=== PATIENT | female | born 1970 | race Caucasian/White ===

== ENCOUNTER 2017-03-19 22:24 | Emergency (ER) | payer OTHER ==
[2017-03-19] MEDS ORDERED: IPRATROPIUM/ALBUTEROL SULFATE 3 ML AMPUL.NEB NEB ONE (22:40)
[2017-03-19] MEDS: IPRATROPIUM/ALBUTEROL SULFATE 3 ML AMPUL.NEB NEB ONE ×2 (22:54→23:30)
--- NOTE | 2017-03-19 23:15 | Diagnostic Imaging Report ---
МАРИЯ LOPEZ [facility] [address] [facility] [address] [place], [place]. [address] Report Submission Date: Mar 19, 2017 11:12:16 PM CDT Patient Study Name: VALENTINE IVERSON Date: Mar 19, 2017 10:53:25 PM CDT Modality Type: CR Gender: F Description: CHEST : 74 Institution: [facility] Physician: МАРИЯ LOPEZ Chest 2 views Date of Exam: March 19, 2017. History: SOB X 7 DAYS (Hx) / SOB (DICOM Hx) / SOB (Pt comments) Findings: No comparison studies are available. The cardiac and mediastinal silhouettes are normal. The lungs are clear. There is no evidence of pulmonary infiltrate or pleural effusion. The trachea is midline and the aortic arch contour is normal. The pulmonary vascularity is within normal limits. Impression: No acute cardiopulmonary abnormality. Electronically signed on Mar 19, 2017 11:12:16 PM CDT by: Aileen SETVENS
--- NOTE | 2017-03-19 23:28 | ED Physician Documentation ---
Dyspnea - HISTORIAN Historian: patient - HPI Stated Complaint: cough, soa Chief Complaint: Asthma Additional Information: onset few days ago inc asthma cough wheezing-etiol uncertain Duration: continues in ED Initiating Event: upper respiratory illness. denies: out of meds Severity: moderate Exacerbated By: change in position, exertion, coughing Associated Symptoms: denies: chills, fever, sweating, chest pain, productive cough - ROS CONST: no problems GI/: none NEURO/PSYCH: denies: headache MS/SKIN/LYMPH: none. denies: rash, swollen glands - PAST HX Lung Disease: asthma, other (seizure lo thryoid) Cardiac Disease: none PE Risk Factors: none Surgeries/Procedures: other (BTL) Allergies/Adverse Reactions: Allergies Allergy/AdvReac Type Severity Reaction Status Date / Time naproxen sodium [From Aleve] Allergy Unknown Verified 03/19/17 22:50 aspirin Allergy Verified 03/19/17 22:50 Sulfa (Sulfonamide Allergy Verified 03/19/17 22:50 Antibiotics) Home Medications: Ambulatory Orders Medication Instructions Recorded Fluticasone Propionate [Flovent 1 puff INH DAILY 03/19/17 Hfa] Prednisone 10 mg PO TID #21 tablet 03/19/17 - SOCIAL HX Smoking History: non-smoker Alcohol Use: none Drug Use: none - FAMILY HX Family History: no significant history - VITAL SIGNS Vital Signs: Vital Signs Temp Pulse Resp BP Pulse Ox 98.9 F 91 H 19 123/83 97 03/19/17 22:50 03/19/17 22:50 03/19/17 22:50 03/19/17 22:50 03/19/17 22:50 - REVIEWED ASSESSMENTS Nursing Assessment Reviewed: Yes Vitals Reviewed: Yes ED Results Lab/Radiology - Radiology Radiology Impressions: cxr=wnl - Orders Orders: ED Orders Category Date Time Status CHEST P.A.&LAT 2 VIEWS [RAD] Stat Exams 03/19/17 Completed Ipratropium/Albuterol Sulfate [Duoneb] Med 03/19/17 22:40 Discontinued 3 ml NEB .STK-MED ONE Ipratropium/Albuterol Sulfate [Duoneb] Med 03/19/17 22:40 Discontinued 3 ml NEB NOW ONE Ipratropium/Albuterol Sulfate [Duoneb] Med 03/19/17 23:25 Once 3 ml NEB NOW ONE methylPREDNISolone ACETATE [Depo-Medrol] Med 03/19/17 23:25 Ordered 80 mg IM NOW PRN Dyspnea Physical Exam - EXAM General Appearance: mild distress, moderate distress EENT: eye inspection normal Neck: nml inspection. No: lymphadenopathy Respiratory: prolonged expirations, wheezes. No: stridor CVS: reg. rate & rhythm, no murmur Abdomen: non-tender Skin: color nml, no rash. No: cyanosis, diaphoresis, pallor, ecchymosis Extremities: non-tender, normal range of motion Neuro/Psych: oriented x3, motor nml, sensation nml, mood/affect nml Discharge Clincal Impression: acute exaberation asthma Prescriptions: Prednisone 10 mg PO TID #21 tablet Referrals: Georgette De La Cruz MD [Primary Care Provider] - 2 Days Home Medications: Ambulatory Orders Fluticasone Propionate [Flovent Hfa] 1 puff INH DAILY 03/19/17 Prednisone 10 mg PO TID #21 tablet 03/19/17 Comments: home meds f/u w/pcp prn Decision to Admit: NO Decision Time: 23:34
[2017-03-19] MEDS ORDERED: methylPREDNISolone ACETATE 80 MG/ML VIAL IM ONE (23:30)
[2017-03-19] MEDS: methylPREDNISolone ACETATE 80 MG/ML VIAL IM PRN (23:30)
[2017-03-19 23:56] VITALS: BP 109/78
== END 2017-03-19 23:50 | disposition home or self-care (01) ==
LOC: ED 22:24
DX: J45.901 Unspecified asthma with (acute) exacerbation (principal)
CPT/HCPCS: 71020; J1040; 96372; 99283

== ENCOUNTER 2017-05-10 13:27 | Emergency (ER) | payer OTHER ==
[2017-05-10 13:40] VITALS: BP 123/79
--- NOTE | 2017-05-10 14:41 | ED Physician Documentation ---
Ear Complaints - HISTORIAN Historian: patient - HPI Stated Complaint: left ear pain Chief Complaint: Ear Complaints Additional Information: xs wax lt ear canal Location of Pain: L ear Severity: moderate Associated Symptoms: dull pain, aching. denies: fever, chills, sharp pain - ROS CONST: no problems CVS/RESP: none GI/: denies: nausea, vomiting MS/SKIN/LYMPH: none All Systems -: Yes - PAST HX Past History: none Allergies/Adverse Reactions: Allergies Allergy/AdvReac Type Severity Reaction Status Date / Time naproxen sodium [From Aleve] Allergy Unknown Verified 05/10/17 13:40 aspirin Allergy Verified 05/10/17 13:40 Sulfa (Sulfonamide Allergy Verified 05/10/17 13:40 Antibiotics) - SOCIAL HX Smoking History: greater than 1 pack/day Alcohol Use: none Drug Use: none - FAMILY HX Family History: No - VITAL SIGNS Vital Signs: Vital Signs Temp Pulse Resp BP Pulse Ox 98.0 F 84 16 123/79 97 05/10/17 13:37 05/10/17 13:37 05/10/17 13:37 05/10/17 13:37 05/10/17 13:37 - REVIEWED ASSESSMENTS Nursing Assessment Reviewed: Yes Vitals Reviewed: Yes Procedures Additional Procedures: lavage - initial Progress: cerumen removal lt ear - used peroxide followed by warm water irrigation followed by betadine-cotton removed tomorrow Ear Complaint Physical Exam - EXAM General Appearance: mild distress Ear: auricle nml, childhood development teacher.canal nml, material in canal, cerumen Head/Neck: atraumatic Eye: eyes nml inspection Resp/CVS: chest non-tender, lungs clear, reg. rate & rhythm Skin: nml color Neuro/Psych: oriented x3 Discharge Clincal Impression: cerumen limpaction lt ear canal Referrals: Georgette De La Cruz MD [Primary Care Provider] - 2 Days Condition: Good Disposition: 01 HOME, SELF-CARE Decision to Admit: NO Decision Time: 14:45
== END 2017-05-10 14:42 | disposition home or self-care (01) ==
LOC: ED 13:27
DX: H61.22 Impacted cerumen, left ear (principal)
CPT/HCPCS: 69210; 99283; S1016

== ENCOUNTER 2017-08-18 18:22 | Emergency (ER) | payer OTHER ==
--- NOTE | 2017-08-18 18:42 | ED Physician Documentation ---
Upper Respiratory Symptoms - HISTORIAN Historian: patient - HPI Stated Complaint: Cough Chief Complaint: Cough/ Upper Respiratory Onset: days ago (4) Duration: constant Context: denies: recent foreign travel Severity: mild Associated Symptoms: fever (in first two days of illness ), chills Worsened by Deep Breath: No Further Comments: yes (cough (she has a history of asthma) fever (first two days of illness) cough that is productive fatigue and sinus pain and pressure.) - ROS CONST/EYES: weakness CVS/RESP: shortness of breath. denies: chest pain LYMPH: denies: rash GI/: denies: vomiting, nausea, diarrhea MS/SKIN: joint pain - PAST HX Lung Disease: asthma PE Risk Factors: other Surgeries/Procedures: none Immunizations: referred to PCP Allergies/Adverse Reactions: Allergies Allergy/AdvReac Type Severity Reaction Status Date / Time naproxen sodium [From Aleve] Allergy Unknown Verified 05/10/17 13:40 aspirin Allergy Verified 05/10/17 13:40 Sulfa (Sulfonamide Allergy Verified 05/10/17 13:40 Antibiotics) - SOCIAL HX Smoking History: non-smoker Alcohol Use: none Drug Use: none - FAMILY HX Family History: none - VITAL SIGNS Vital Signs: Vital Signs Temp Pulse Resp BP Pulse Ox 98.3 F 81 17 118/61 97 08/18/17 18:25 08/18/17 18:25 08/18/17 18:25 08/18/17 18:25 08/18/17 18:25 - REVIEWED ASSESSMENTS Nursing Assessment Reviewed: Yes Vitals Reviewed: Yes ED Results Lab/Radiology - Lab Results Lab Results: Lab Results 08/18/17 08/18/17 19:23 19:23 WBC 3.00 K/ul L K/ul (4.00-12.00) RBC 4.14 M/ul M/ul (3.90-5.20) Hgb 12.9 g/dL g/dL (12.0-16.0) Hct 38.3 % % (34.5-46.5) MCV 92.6 fl fl (80.0-100.0) MCH 31.1 pg pg (28.0-34.0) MCHC 33.6 g/dL g/dL (30.0-36.0) RDW 12.6 % % (11.3-14.3) Plt Count 245 K/mm3 K/mm3 (130-400) Neut % (Auto) 50.0 % % (39.0-79.0) Lymph % (Auto) 42.2 % % (16.0-50.0) [place] % (Auto) 3.3 % % (0.0-11.0) Eos % (Auto) 0.8 % % (0.0-6.8) Baso % (Auto) 0.4 (0.0-1.5) Neut # (Auto) 1.5 # k/uL # k/uL (1.4-7.7) Lymph # (Auto) 1.2 # k/uL # k/uL (0.6-4.0) [place] # (Auto) 0.1 # k/uL # k/uL (0.0-0.9) Eos # (Auto) 0.0 # k/uL # k/uL (0.0-0.6) Baso # (Auto) 0.0 # k/uL # k/uL (0.0-0.5) Reactive Lymphs % 3.3 % % (0.0-5.0) Reactive Lymphs # 0.1 # k/uL # k/uL (0.0-0.8) Sodium 140 mmol/L mmol/L (136-145) Potassium 3.6 mmol/L mmol/L (3.5-5.1) Chloride 104 mmol/L mmol/L (98-107) Carbon Dioxide 24 mmol/L mmol/L (22-30) BUN 4 mg/dL L mg/dL (7-17) Creatinine 0.50 mg/dL L mg/dL (0.52-1.04) Estimated Creat Clear 191 Est GFR ( Amer) > 60 (60 - ) Est GFR (Non-Af Amer) > 60 (60 - ) Glucose 101 mg/dL mg/dL (74-106) Calcium 8.4 mg/dL mg/dL (8.4-10.2) Total Bilirubin 0.6 mg/dL mg/dL (0.2-1.3) AST 64 U/L H U/L (15-46) ALT 45 U/L U/L (13-69) Alkaline Phosphatase 91 U/L U/L (38-126) Total Protein 7.7 g/dL g/dL (6.3-8.2) Albumin 4.2 g/dL g/dL (3.5-5.0) - Orders Orders: ED Orders Category Date Time Status IV Started NOW Care 08/18/17 18:48 Active CHEST 2 VIEW [CHEST P.A.&LAT 2 VIEWS] [RAD] Stat Exams 08/18/17 18:47 Taken CBC/PLATELET/DIFF Stat Lab 08/18/17 19:23 Completed CMP Stat Lab 08/18/17 19:23 Completed Ipratropium/Albuterol Sulfate [Duoneb] Med 08/18/17 18:48 Discontinued 3 ml NEB NOW ONE Upper Respiratory Symptoms - EXAM General Appearance: no acute distress EENT: eyes nml inspection, pharynx nml Neck: normal inspection Respiratory: no resp. distress, wheezes Abdomen: non-tender Skin: color nml, no rash, warm,dry Extremities: non-tender, normal range of motion, no edema Neuro/Psych: oriented x3, neuro intact, mood/affect nml Discharge Clincal Impression: Bronchitis Referrals: Georgette De La Cruz MD [Primary Care Provider] - 2 Days Comments: 1. zpack - take as directed 2. medrol dose pack take as directed 3. Continue proair for rescue 4. increase fluids 5. OTC meds for fever or headache 6. PCP in 2-4 days 7. Return to ER for fever, shortness of breath or any other concerns,. Condition: Stable Disposition: 01 HOME, SELF-CARE Decision to Admit: NO Date of Decison to Admit: 08/18/17 Decision Time: 19:57
[2017-08-18] MEDS: IPRATROPIUM/ALBUTEROL SULFATE 3 ML AMPUL.NEB NEB ONE (19:10)
[2017-08-18 19:26] LABS: BASOPHILS % 0.4 (0.0-1.5); EOSINOPHILS % 0.8 % (0.0-6.8); MEAN CORPUSCULAR HEMOGLOBIN 31.1 pg (28.0-34.0); MEAN CORPUSCULAR VOLUME 92.6 fl (80.0-100.0); MONOCYTES % 3.3 % (0.0-11.0); NEUTROPHILS # 1.5 # k/uL (1.4-7.7)
[2017-08-18 19:41] LABS: eGFR (African) > 60; eGFR (Non-African) > 60
[2017-08-18] MEDS: methylPREDNISolone ACETATE 40 MG/ML VIAL IM ONE (20:05)
[2017-08-18] MEDS: AZITHROMYCIN 250 MG TABLET PO ONE (20:10)
[2017-08-18 20:20] VITALS: BP 124/80
--- NOTE | 2017-08-18 22:39 | Diagnostic Imaging Report ---
KASSANDRA RICHARDSON [facility] [address] [facility] [address] [place], [place]. [address] Report Submission Date: Aug 18, 2017 7:13:17 PM COUNTER FORMER Patient Study Name: VALENTINE IVERSON Date: Aug 18, 2017 6:56:28 PM COUNTER FORMER Modality Type: CR Gender: F Description: CHEST : 74 Institution: [facility] Physician: KASSANDRA RICHARDSON PA and lateral chest CLINICAL HISTORY: Cough for 7 days. Fever and headache. FINDINGS: Examination of the chest in PA and lateral views with comparison to examination of 03/19/2017 demonstrates right lower lobe infiltrate medially. The left lung is clear. Cardiovascular and mediastinal silhouettes are within normal limits. IMPRESSION: Right lower lobe pneumonia. Electronically signed on Aug 18, 2017 7:13:17 PM COUNTER FORMER by: Willie STEVENS
== END 2017-08-18 20:13 | disposition home or self-care (01) ==
LOC: ED 18:22
DX: J40 Bronchitis, not specified as acute or chronic (principal); F17.210 Nicotine dependence, cigarettes, uncomplicated
CPT/HCPCS: 71020; 80053; 85025; J1030; 71046; 94640; 96372; 99283; S1016

== ENCOUNTER 2018-05-18 09:20 | Outpatient (CLI) | payer OTHER ==
[2018-05-18 09:38] LABS: BASOPHILS % 0.4 (0.0-1.5); EOSINOPHILS % 3.4 % (0.0-6.8); MEAN CORPUSCULAR HEMOGLOBIN 30.3 pg (28.0-34.0); MONOCYTES % 4.5 % (0.0-11.0); NEUTROPHILS # 3.5 # k/uL (1.4-7.7)
[2018-05-18 10:02] LABS: eGFR (Non-African) > 60
== END 2018-05-18 09:22 ==
LOC: LAB 09:20
PROVIDERS: ATTEND Family Medicine
DX: E03.9 Hypothyroidism, unspecified (principal)
CPT/HCPCS: 36415; 80053; 80156; 84443; 85025

== ENCOUNTER 2018-05-18 16:25 | Outpatient (CLI) | payer OTHER | END 2018-05-18 16:26 | LOC: LABRHC 16:25 | PROVIDERS: ATTEND Family Medicine | DX: Z12.4 Encounter for screening for malignant neoplasm of cervix (principal) | CPT/HCPCS: 88148; G0143 ==

== ENCOUNTER 2018-06-22 21:03 | Emergency (ER) | payer OTHER ==
[2018-06-22 21:21] VITALS: BP 138/93
--- NOTE | 2018-06-22 21:22 | ED Physician Documentation ---
General Adult - HISTORIAN Historian: patient - HPI Stated Complaint: cat scratch Chief Complaint: General Adult Additional Information: Patient presents to ED after being scratched on the nose by her cat. She states she can't stop the bleeding. She is unsure of her last tetanus. Onset: hours (2) Timing: still present Further Comments: no - ROS CONST: no problems EYES/ENT: none CVS/RESP: none GI/: none MS/SKIN/LYMPH: none - PAST HX Past History: none Other History: none Surgeries/Procedures: none Allergies/Adverse Reactions: Allergies Allergy/AdvReac Type Severity Reaction Status Date / Time naproxen sodium [From Aleve] Allergy Unknown Verified 06/22/18 21:14 aspirin Allergy Verified 06/22/18 21:14 Sulfa (Sulfonamide Allergy Verified 06/22/18 21:14 Antibiotics) - SOCIAL HX Smoking History: non-smoker Alcohol Use: none Drug Use: none - FAMILY HX Family History: No - VITAL SIGNS Vital Signs: Vital Signs Temp Pulse Resp BP Pulse Ox 124/80 08/18/17 20:13 - REVIEWED ASSESSMENTS Nursing Assessment Reviewed: Yes Vitals Reviewed: Yes General Adult Physical Exam - PHYSICAL EXAM GENERAL APPEARANCE: no distress EENT: ÁNGEL NECK: supple RESPIRATORY: no resp distress, chest non-tender, breath sounds normal CVS: reg rate & rhythm, heart sounds normal ABDOMEN: soft, normal bowel sounds BACK: no CVA tenderness SKIN: warm/dry, other (superficial 3mm scratch on nose) EXTREMITIES: non-tender NEURO: oriented X3 Discharge Clincal Impression: Cat scratch of face Qualifiers: Encounter type: initial encounter Qualified Code(s): S00.81XA - Abrasion of other part of head, initial encounter; W55.03XA - Scratched by cat, initial encounter Referrals: Georgette De La Cruz MD [Primary Care Provider] - 2 Days Additional Instructions: 1. Apply triple antibiotic ointment twice daily 2. Apply ice to affected area as needed 3. Tylenol as needed for pain 4. Follow up with PCP with 1 week. Condition: Stable Decision to Admit: NO Date of Decison to Admit: 06/22/18 Decision Time: 21:24
[2018-06-22] MEDS ORDERED: DIPH,PERTUSS(ACELL),TET VAC/PF 0.5 ML DISP.SYRIN IM ONE (21:23)
== END 2018-06-22 21:40 | disposition home or self-care (01) ==
LOC: ED 21:03
DX: S00.81XA Abrasion of other part of head, initial encounter (principal); W55.03XA Scratched by cat, initial encounter; Y92.099 Unspecified place in other non-institutional residence as the place of occurrence of the external cause; Z23 Encounter for immunization
CPT/HCPCS: 90471; 90715; 99282

== ENCOUNTER 2018-08-19 20:42 | Emergency (ER) | payer OTHER ==
[2018-08-19 21:04] VITALS: BP 135/90
--- NOTE | 2018-08-19 21:08 | ED Physician Documentation ---
General Adult - HISTORIAN Historian: patient - HPI Stated Complaint: Rt neck/upper back muscle tightness Chief Complaint: Neck Pain Additional Information: 48yo whie female who states that she awoke yesterday AM with right neck pain. Pain is constant. Helped some with heat pain. Can turn head to the left OK but turning to the right causes pain. No clicking or popping in the neck. No numbness or weakness noted to the right upper extremity. Timing: still present, worse Severity: moderate Modifying Factors: movement makes it worse Quality: spasm like pains - ROS CONST: other CVS/RESP: none - PAST HX Past History: denies: other (asthma, hypothyroidism, seizure (last seizure was 18 years ago)) Surgeries/Procedures: BTL Immunizations: referred to PCP Allergies/Adverse Reactions: Allergies Allergy/AdvReac Type Severity Reaction Status Date / Time naproxen sodium [From Aleve] Allergy Unknown Verified 08/19/18 21:05 aspirin Allergy Verified 08/19/18 21:05 Sulfa (Sulfonamide Allergy Verified 08/19/18 21:05 Antibiotics) Home Medications: Ambulatory Orders Medication Instructions Recorded Cyclobenzaprine HCl [Flexeril] 10 mg PO Q8 PRN #10 tablet 08/19/18 - SOCIAL HX Smoking History: non-smoker Alcohol Use: none Drug Use: none - FAMILY HX Family History: No - VITAL SIGNS Vital Signs: Vital Signs Temp Pulse Resp BP Pulse Ox 91 H 16 135/90 98 08/19/18 20:42 08/19/18 20:42 08/19/18 20:42 08/19/18 20:42 - REVIEWED ASSESSMENTS Nursing Assessment Reviewed: Yes Vitals Reviewed: Yes General Adult Physical Exam - PHYSICAL EXAM GENERAL APPEARANCE: mild distress EENT: eye inspection normal, ENT inspection normal, pharynx normal, no signs of dehydration NECK: thyroid normal RESPIRATORY: no resp distress, chest non-tender, breath sounds normal. No: wheezes, rales, rhonchi CVS: reg rate & rhythm, heart sounds normal, equal pulses, no murmur BACK: other (tenderness to palpation over the right sternocleomastoid muscle) SKIN: warm/dry, normal color EXTREMITIES: non-tender, normal range of motion, no evidence of injury NEURO: oriented X3, CN's nml as tested, motor nml, sensation nml, mood/affect nml, cognition normal, other (DTR to BR, Biceps, triceps normal and equal.) Discharge Clincal Impression: Cervical strain, acute Qualifiers: Encounter type: initial encounter Qualified Code(s): S16.1XXA - Strain of muscle, fascia and tendon at neck level, initial encounter Prescriptions: Cyclobenzaprine HCl [Flexeril] 10 mg PO Q8 PRN #10 tablet PRN Reason: muscle spasms Referrals: Georgette De La Cruz MD [Primary Care Provider] - 2 Days Additional Instructions: Alternate between cool and warm compress to the area of pain. Take flexoril every 8 hours as needed. Try to rest the neck muscles. If not improved in one week or if worse before then see your primary care provider or return to the ED. Condition: Stable Disposition: 01 HOME, SELF-CARE Decision to Admit: NO Date of Decison to Admit: 08/19/18 Decision Time: 21:20
[2018-08-19] MEDS ORDERED: CYCLOBENZAPRINE HCL 10 MG TABLET PO ONE (21:23)
[2018-08-19] MEDS ORDERED: CYCLOBENZAPRINE HCL 5 MG TABLET ONE (21:32)
== END 2018-08-19 21:35 | disposition home or self-care (01) ==
LOC: ED 20:42
DX: S16.1XXA Strain of muscle, fascia and tendon at neck level, initial encounter (principal); X58.XXXA Exposure to other specified factors, initial encounter; Y93.9 Activity, unspecified; Y92.9 Unspecified place or not applicable
CPT/HCPCS: 99282; 99283

== ENCOUNTER 2018-09-15 17:04 | Emergency (ER) | payer OTHER ==
--- NOTE | 2018-09-15 17:44 | ED Physician Documentation ---
Lower Extremity Injury - HISTORIAN Historian: patient - HPI Stated Complaint: right ankle injury Chief Complaint: Lower Extremity Injury Context: fall (fell in puddle), twist Associated Symptoms:: swelling, unable to bear weight Modifying Factors:: pain on movement - ROS CONST: no problems CVS/RESP: none GI/: denies: nausea, vomiting MS/SKIN/LYMPH: none NEURO: denies: headache - PAST HX Past History: other (CP, seizures, hypothyroidism) Allergies/Adverse Reactions: Allergies Allergy/AdvReac Type Severity Reaction Status Date / Time naproxen sodium [From Aleve] Allergy Unknown Verified 09/15/18 17:23 aspirin Allergy Verified 09/15/18 17:23 Sulfa (Sulfonamide Allergy Verified 09/15/18 17:23 Antibiotics) - SOCIAL HX Smoking History: non-smoker - FAMILY HX Family History: denies: none - VITAL SIGNS Vital Signs: Vital Signs Temp Pulse Resp BP Pulse Ox 98.1 F 80 18 137/91 99 09/15/18 17:11 09/15/18 18:39 09/15/18 18:39 09/15/18 18:39 09/15/18 18:39 - REVIEWED ASSESSMENTS Nursing Assessment Reviewed: Yes Vitals Reviewed: Yes ED Results Lab/Radiology - Orders Orders: ED Orders Category Date Time Status Armando Wrap Affected Extremity 1T Care 09/15/18 18:13 Active Posterior Ankle Splint 1T Care 09/15/18 18:13 Active ANKLE 3 VIEWS OR MORE [RAD] Stat Exams 09/15/18 17:34 Taken Ketorolac Tromethamine [Toradol] Med 09/15/18 18:12 Discontinued 60 mg IM NOW ONE Lower Extremities Injury Phy - Physical Exam General Appearance: moderate distress Hips: bilateral hip: non-tender, normal inspection, normal range of motion Legs: bilateral: non-tender, normal inspection, normal range of motion Knees: bilateral: non-tender, normal inspection, normal range of motion Ankle: right: deformity, limited range of motion, pain, soft tissue tenderness, swelling, left: non-tender, normal inspection, normal range of motion, no evidence of injury Foot: bilateral foot: non-tender, normal inspection, normal range of motion, no evidence of injury Gait: limited by pain Neuro/Vascular/Tendon: no vascular compromise, motor nml, sensation nml, ROM nml Resp/CVS: chest non-tender, breath sounds nml, heart sounds nml, no resp. distress, lungs clear, reg. rate & rhythm Discharge Clincal Impression: Ankle sprain Qualifiers: Encounter type: initial encounter Involved ligament of ankle: unspecified ligament Laterality: right Qualified Code(s): S93.401A - Sprain of unspecified ligament of right ankle, initial encounter Referrals: Georgette De La Cruz MD [Primary Care Provider] - 2 Days Additional Instructions: Ice Rest Elevation You may use Tylenol every 4hour as needed for pain. Limit your dose to less than 4 G per day. Alternate with Ibuprofen 600-800mg three times a day with food for 3 days, then as needed. Do not take for more than 5 days in a row. If you are unable to bear weight and continuing to have significant pain on day 3-4; see your PCP for re-evaluation and additional xrays. Ankle Sprain - Range of Motion Exercises Write the alphabet with your big toe A-Z and number 1-20 at least four times a day. This will help decrease increase you mobility. Condition: Stable Disposition: 01 HOME, SELF-CARE Decision to Admit: NO Decision Time: 18:07
[2018-09-15] MEDS: KETOROLAC TROMETHAMINE 60 MG/2 ML VIAL IM ONE (18:20)
[2018-09-15 18:40] VITALS: BP 137/91
--- NOTE | 2018-09-16 06:31 | Diagnostic Imaging Report ---
FRANKIE ELI (SLITTER CUT OFF OPERATOR) - ER [facility] [address] [facility].[address] [address] Report Submission Date: Sep 15, 2018 5:58:28 PM BLEACHING MACHINE OPERATOR Patient Study Name: VALENTINE IVERSON Date: Sep 15, 2018 5:24:57 PM BLEACHING MACHINE OPERATOR Modality Type: DX Gender: F Description: ANKLE 3 VIEWS OR MORE : 74 Institution: [facility] Physician: FRANKIE ELI (SLITTER CUT OFF OPERATOR) - ER Right ankle, 3 views HISTORY Fall, injury, pain FINDINGS Soft tissue swelling is present over the lateral malleolus. There is no acute fracture, dislocation or abnormal bone destruction. IMPRESSION Soft tissue swelling but no acute abnormality. Electronically signed on Sep 15, 2018 5:58:28 PM BLEACHING MACHINE OPERATOR by: Henrry STEVENS
== END 2018-09-15 18:35 | disposition home or self-care (01) ==
LOC: ED 17:04
DX: S93.401A Sprain of unspecified ligament of right ankle, initial encounter (principal); X58.XXXA Exposure to other specified factors, initial encounter; Y93.9 Activity, unspecified; Y92.9 Unspecified place or not applicable
CPT/HCPCS: 29515; 73610; 96372; 99283; J1885

== ENCOUNTER 2019-05-24 10:39 | Outpatient (CLI) | payer OTHER ==
[2019-05-24 12:02] LABS: eGFR (Non-African) > 60
== END 2019-05-24 10:44 ==
LOC: LAB 10:39
PROVIDERS: ATTEND Family Medicine
DX: E03.9 Hypothyroidism, unspecified (principal); G40.909 Epilepsy, unspecified, not intractable, without status epilepticus; Z79.899 Other long term (current) drug therapy
CPT/HCPCS: 36415; 80053; 80156; 84443; 85027

== ENCOUNTER 2019-05-26 15:21 | Outpatient (CLI) | payer OTHER ==
--- NOTE | 2019-06-03 11:17 | OP Clinic Progress Note ---
DATE OF VISIT: 05/26/2019 SUBJECTIVE: Sarah is a 49-year-old female presenting to the clinic today for a right third toe abnormal toenail that is causing pain for her. She states that she has had this for a couple of months. She has cerebral palsy and is a patient of Dr. De La Cruz. She states that she is concerned that she could have an ingrown toenail. She gets pain on mainly on the top of the toenail because it is so large and almost a horn shape coming off the dorsal aspect of the toe at the nail bed area. She also has a small callus on the end of the toe that is sore to the patient. She does not admit to any fevers, chills, nausea, vomiting, shortness of breath or chest pain. OBJECTIVE: Vitals: Temperature 98.5 degrees Fahrenheit, heart rate 105, respiration rate 16, blood pressure 136/87. O2 saturation is 96% on room air. Vascular: 2+ DP and PT pulses, right foot. Capillary refill time is less than 3 seconds to the toes of the right foot. There is no edema noted, right foot. Dermatologic: There is a very large and horn shaped/curved right third toenail that is causing pain to the patient. There is no erythema or drainage or any other skin lesions noted, right foot. There are no hyperkeratoses noted of the right foot. Musculoskeletal: There is pain on palpation with direct palpation over the right third toenail. There is also pain at the callus site on the distal tip. There is no pain on palpation on the medial or lateral aspects of the toenail area of the right third toe. There is no other gross abnormalities noted except for some high arch on the right. Neurologic: Light touch sensation is intact to the toes, right foot. ASSESSMENT AND PLAN: 1. Onychomycosis right third toe with abnormal nail horn shaped. 2. Hyperkeratosis, right third toe distal tip. PROCEDURE #1: Paring of the callus of the right third toe, distal tip with a #15 blade was performed today to intact epithelium. The patient tolerated the procedure well. PROCEDURE #2: Trimming of the right third toenail only was performed today (one nail). This had a Dremel used to pare it down to be of almost a normal shape. The patient was happy with the care today. We discussed the possibility of a total nail avulsion versus avulsion with chemical matrixectomy versus just trimming the toenail today and I recommended we just trim the toenail and see if this gives her relief from the pain. If it does not, then we will consider a total nail avulsion with or without a chemical matrixectomy in the future. She will return to clinic as needed [facility] at the [facility] for likely a nail trim given there if she needs help with that, otherwise, we will have her come to the outpatient clinic for a procedure if needed. Robi Sheldon D.P.M. /[employer] [id number] R: 06/01/19 /mab MTDD
== END 2019-05-26 15:50 ==
LOC: POD 15:21
PROVIDERS: ATTEND Podiatrist Foot & Ankle Surgery
DX: L85.9 Epidermal thickening, unspecified (principal); B35.1 Tinea unguium
CPT/HCPCS: A4554